=== PATIENT | male | born 1960 | race Caucasian/White ===

== ENCOUNTER 2017-06-19 12:37 | Emergency (ER) | payer MEDICAID, OTHER ==
[~2017-06-19] VITALS: Ht 177.8 cm; Wt 107.5 kg
[~2017-06-19 12:37] MED LIST: ACET325T26 PO; FENO48TA16 PO; HYDR-3240 PO; LANS15CA5 PO; METO10TA82 PO; ONDA4TAB7 PO; PANT40TA3 PO; SERT100T PO
[2017-06-19] MEDS ORDERED: HYDROmorphone 1 MG/ML, 1ML ONE ×3 (14:54→17:08)
[2017-06-19] MEDS ORDERED: ONDANSETRON 2MG/ML, 2ML ONE (14:54)
[2017-06-19] MEDS ORDERED: FAMOTIDINE 20 MG/2 ML ONE (14:55)
[2017-06-19] MEDS: HYDROmorphone 1 MG/ML, 1ML IVPush PRN ×2 (14:56→16:23)
[2017-06-19] MEDS ORDERED: ONDANSETRON 2MG/ML, 2ML IVPush ONE ×2 (15:00→17:30)
[2017-06-19] MEDS ORDERED: FAMOTIDINE 20 MG/2 ML IVP ONE (15:00)
[2017-06-19] MEDS ORDERED: SODIUM CHLORIDE FLUSH 10ML SYR IVF ONE (15:00)
[2017-06-19] MEDS ORDERED: SODIUM CHLORIDE 0.9% 1,000ML IVBOLUS ONE (15:00)
[2017-06-19 15:06] LABS: HEMATOCRIT 48.3 % (39.2-51.8); HEMOGLOBIN 16.8 g/dL (13.7-18.0); WHITE BLOOD COUNT 9.5 x10^3/uL (3.4-10)
[2017-06-19 15:18] LABS: BLOOD UREA NITROGEN 13 mg/dL (7-18)
[2017-06-19 15:24] LABS: ASPARTATE AMINO TRANSFERASE 67 U/L (15-37)
[2017-06-19] MEDS ORDERED: OMNIPAQUE 350 MG/ML, 100ML BOTTLE ONE (16:17)
[2017-06-19] MEDS ORDERED: HYDROmorphone 2 MG/ML, 1ML IVPush PRN (17:30)
== END 2017-06-19 18:38 | disposition home or self-care (01) ==
LOC: ED 14:54
DX: R10.84 Generalized abdominal pain (principal); R11.10 Vomiting, unspecified; E78.5 Hyperlipidemia, unspecified; K21.9 Gastro-esophageal reflux disease without esophagitis; F17.200 Nicotine dependence, unspecified, uncomplicated; Z90.49 Acquired absence of other specified parts of digestive tract
CPT/HCPCS: 36415; 74177; 80053; 81003; 83690; 85025; 96361; 96374; 96375; 96376; 99285; J1170; J2405; J7030; Q9967; S0028

== ENCOUNTER 2017-07-31 12:00 | Emergency (ER) | payer MEDICAID, OTHER ==
[~2017-07-31] VITALS: Ht 177.8 cm; Wt 107.5 kg
[2017-07-31] MEDS ORDERED: KETOROLAC 30 MG/1 ML ONE (12:54)
[2017-07-31] MEDS ORDERED: ALBUTEROL/IPRATROPIUM 2.5MG/0.5MG, 3 ML NPPB ONE (13:00)
[2017-07-31] MEDS ORDERED: KETOROLAC 30 MG/1 ML IM ONE (13:00)
[2017-07-31 14:20] VITALS: BP 154/87
== END 2017-07-31 14:22 | disposition home or self-care (01) ==
LOC: ED 14:13
DX: J20.9 Acute bronchitis, unspecified (principal); K21.9 Gastro-esophageal reflux disease without esophagitis; E78.5 Hyperlipidemia, unspecified; F32.9 Major depressive disorder, single episode, unspecified
CPT/HCPCS: 71020; 96372; 99284; J1885

== ENCOUNTER 2017-09-04 18:31 | Emergency (ER) | payer MEDICAID ==
[~2017-09-04] VITALS: Ht 177.8 cm; Wt 108.0 kg
[2017-09-04] MEDS ORDERED: SERT100T5 PO (18:41)
[2017-09-04] MEDS ORDERED: PANTOPRAZOLE 20MG TABLET ONE ×2 (19:14→19:36)
[2017-09-04] MEDS ORDERED: ONDANSETRON ODT 4 MG ONE ×2 (19:14→19:37)
[2017-09-04] MEDS ORDERED: MAALOX/HYOSCYAMINE/LIDOCAINE 45 ML BTL ONE ×2 (19:14→19:37)
[2017-09-04] MEDS ORDERED: ONDANSETRON ODT 4 MG PO ONE (19:30)
[2017-09-04] MEDS ORDERED: PANTOPRAZOLE 20MG TABLET PO ONE (19:30)
[2017-09-04] MEDS ORDERED: MAALOX/HYOSCYAMINE/LIDOCAINE 45 ML BTL PO ONE (19:30)
[2017-09-04 20:17] VITALS: BP 124/77
== END 2017-09-04 20:34 | disposition home or self-care (01) ==
LOC: ED 19:33
DX: K21.9 Gastro-esophageal reflux disease without esophagitis (principal); E78.5 Hyperlipidemia, unspecified; G89.29 Other chronic pain
CPT/HCPCS: 93005; 99284; Q0162

== ENCOUNTER 2017-10-05 10:49 | Emergency (ER) | payer MEDICAID ==
[~2017-10-05] VITALS: Ht 177.8 cm; Wt 107.7 kg
[~2017-10-05 10:49] MED LIST changes: +SERT100T5 PO
[2017-10-05] MEDS ORDERED: ONDANSETRON 2MG/ML, 2ML ONE (11:24)
[2017-10-05] MEDS ORDERED: MORPHINE SULFATE 4 MG/ML, 1ML ONE ×3 (11:24→12:46)
[2017-10-05] MEDS ORDERED: MAALOX/HYOSCYAMINE/LIDOCAINE 45 ML BTL ONE (11:24)
[2017-10-05] MEDS ORDERED: SODIUM CHLORIDE FLUSH 10ML SYR IVF ONE (11:30)
[2017-10-05] MEDS ORDERED: ONDANSETRON 2MG/ML, 2ML IVPush ONE (11:30)
[2017-10-05] MEDS ORDERED: SODIUM CHLORIDE 0.9% 1,000ML IVBOLUS ONE (11:30)
[2017-10-05] MEDS ORDERED: MAALOX/HYOSCYAMINE/LIDOCAINE 45 ML BTL PO ONE (11:30)
[2017-10-05] MEDS: MORPHINE SULFATE 4 MG/ML, 1ML IVPush PRN ×2 (11:34→12:13)
[2017-10-05 11:50] LABS: HEMATOCRIT 49.3 % (39.2-51.8); WHITE BLOOD COUNT 8.8 x10^3/uL (3.4-10)
[2017-10-05 12:03] LABS: ASPARTATE AMINO TRANSFERASE 42 U/L (15-37); BLOOD UREA NITROGEN 13 mg/dL (7-18)
[2017-10-05] MEDS ORDERED: MORPHINE SULFATE 4 MG/ML, 1ML IVPush PRN (13:00)
[2017-10-05 13:12] VITALS: BP 136/89
== END 2017-10-05 13:17 | disposition home or self-care (01) ==
LOC: ED 13:00
DX: R10.13 Epigastric pain (principal); K21.9 Gastro-esophageal reflux disease without esophagitis; E78.5 Hyperlipidemia, unspecified; Z90.49 Acquired absence of other specified parts of digestive tract
CPT/HCPCS: 36415; 74022; 80053; 83690; 85025; 96374; 96375; 96376; 99285; J2405; J7030

== ENCOUNTER 2017-11-05 01:07 | Emergency (ER) | payer MEDICAID ==
[~2017-11-05] VITALS: Ht 177.8 cm; Wt 104.4 kg
[2017-11-05 02:07] LABS: BASOPHILS # (AUTO) 0.04 x10^3/uL (0-0.1); BASOPHILS % (AUTO) 0 % (0-1); EOSINOPHILS # (AUTO) 0.41 x10^3/uL (0-0.4); EOSINOPHILS % (AUTO) 5 % (1-7); LYMPHOCYTES # (AUTO) 2.77 x10^3/uL (1-3.4); LYMPHOCYTES % (AUTO) 30 % (22-44); MD NO; MEAN CORPUSCULAR HEMOGLOBIN 30.5 pg (27.5-34.5); MEAN CORPUSCULAR VOLUME 89.8 fL (81-97); MEAN PLATELET VOLUME 8.3 fL (7.4-10.4); MONOCYTES # (AUTO) 0.77 x10^3/uL (0.2-0.8); MONOCYTES % (AUTO) 8 % (2-9); NEUTROPHILS # (AUTO) 5.16 x10^3/uL (1.8-6.8); NEUTROPHILS % (AUTO) 56 % (42-75); PLATELET COUNT 172 x10^3/uL (130-400); RED BLOOD COUNT 5.51 x10^6/uL (4.38-5.82); RED CELL DISTRIBUTION WIDTH 13.5 % (9.4-14.8)
[2017-11-05 02:16] LABS: ALANINE AMINOTRANSFERASE 85 U/L (12-78); ALBUMIN 3.8 g/dL (3.4-5.0); ANION GAP 10 mmol/L (5-15); CALCIUM 8.5 mg/dL (8.5-10.1); CHLORIDE 110 mmol/L (98-107); CREATININE 0.87 mg/dL (0.7-1.3)
[2017-11-05 02:18] LABS: ALKALINE PHOSPHATASE 89 U/L (45-117); BILIRUBIN,TOTAL 0.7 mg/dL (0.2-1.0)
[2017-11-05 02:28] VITALS: BP 123/80
== END 2017-11-05 03:12 | disposition home or self-care (01) ==
LOC: ED 01:23
DX: R06.00 Dyspnea, unspecified (principal); F17.210 Nicotine dependence, cigarettes, uncomplicated; K21.9 Gastro-esophageal reflux disease without esophagitis; Z90.49 Acquired absence of other specified parts of digestive tract
CPT/HCPCS: 36415; 71046; 80053; 83690; 85025; 93005; 99285

== ENCOUNTER 2018-02-27 17:05 | Emergency (ER) | payer MEDICAID ==
[~2018-02-27] VITALS: Ht 177.8 cm; Wt 106.8 kg
[2018-02-27] MEDS ORDERED: ASPIRIN 81 MG TABLET CHEW PO ONE (17:30)
[2018-02-27] MEDS ORDERED: SODIUM CHLORIDE FLUSH 10ML SYR IVF ONE (17:30)
[2018-02-27 17:39] LABS: BASOPHILS % (AUTO) 0 % (0-1); EOSINOPHILS % (AUTO) 5 % (1-7); LYMPHOCYTES % (AUTO) 25 % (22-44); MEAN CORPUSCULAR HEMOGLOBIN 30.5 pg (27.5-34.5); MEAN CORPUSCULAR HGB CONC 34.1 g/dL (33.2-36.2); MEAN CORPUSCULAR VOLUME 89.5 fL (81-97); MEAN PLATELET VOLUME 9.1 fL (7.4-10.4); MONOCYTES % (AUTO) 7 % (2-9); NEUTROPHILS # (AUTO) 4.89 x10^3/uL (1.8-6.8); NEUTROPHILS % (AUTO) 63 % (42-75); PLATELET COUNT 136 x10^3/uL (130-400); RED BLOOD COUNT 5.88 x10^6/uL (4.38-5.82); RED CELL DISTRIBUTION WIDTH 13.7 % (9.4-14.8)
[2018-02-27 17:40] LABS: BASOPHILS # (AUTO) 0.02 x10^3/uL (0-0.1); EOSINOPHILS # (AUTO) 0.35 x10^3/uL (0-0.4); LYMPHOCYTES # (AUTO) 1.92 x10^3/uL (1-3.4); MD NO; MONOCYTES # (AUTO) 0.54 x10^3/uL (0.2-0.8)
[2018-02-27 17:51] LABS: ALBUMIN 3.8 g/dL (3.4-5.0); ANION GAP 7 mmol/L (5-15); CALCIUM 8.7 mg/dL (8.5-10.1); CHLORIDE 109 mmol/L (98-107)
[2018-02-27 17:56] LABS: ALANINE AMINOTRANSFERASE 63 U/L (12-78); ALKALINE PHOSPHATASE 95 U/L (45-117); BILIRUBIN,TOTAL 1.1 mg/dL (0.2-1.0); CREATININE 0.98 mg/dL (0.7-1.3); TOTAL PROTEIN 7.4 g/dL (6.4-8.2); TROPONIN I < 0.015 ng/mL (0.000-0.045)
[2018-02-27] MEDS ORDERED: ALUMINUM/MAG/SIMETHICONE 30 ML UDC ONE (18:58)
[2018-02-27] MEDS ORDERED: ACETAMINOPHEN 500 MG TABLET ONE (18:58)
[2018-02-27] MEDS ORDERED: ALUMINUM/MAG/SIMETHICONE 30 ML UDC PO PRN (19:00)
[2018-02-27] MEDS ORDERED: ACETAMINOPHEN 500 MG TABLET PO ONE (19:00)
[2018-02-27 19:41] VITALS: BP 106/61
== END 2018-02-27 20:15 | disposition home or self-care (01) ==
LOC: ED 20:09
DX: R07.2 Precordial pain (principal); F17.200 Nicotine dependence, unspecified, uncomplicated; K21.9 Gastro-esophageal reflux disease without esophagitis; G89.29 Other chronic pain; R10.9 Unspecified abdominal pain; F32.9 Major depressive disorder, single episode, unspecified
CPT/HCPCS: 36415; 71045; 80053; 83690; 84484; 85025; 85379; 93005; 99406

== ENCOUNTER 2018-03-03 03:48 | Emergency (ER) | payer MEDICAID ==
[~2018-03-03] VITALS: Ht 177.8 cm; Wt 104.6 kg
[2018-03-03] MEDS ORDERED: PROMETHAZINE 25 MG/ML, 1ML ONE (04:26)
[2018-03-03] MEDS ORDERED: MORPHINE SULFATE 4 MG/ML, 1ML ONE ×2 (04:26→06:43)
[2018-03-03] MEDS ORDERED: PROMETHAZINE 25 MG/ML, 1ML IM ONE (04:30)
[2018-03-03] MEDS ORDERED: SODIUM CHLORIDE FLUSH 10ML SYR IVF ONE (04:30)
[2018-03-03 04:31] LABS: MICROSCOPIC AUTO
[2018-03-03 04:35] LABS: BASOPHILS # (AUTO) 0.03 x10^3/uL (0-0.1); BASOPHILS % (AUTO) 0 % (0-1); EOSINOPHILS # (AUTO) 0.34 x10^3/uL (0-0.4); EOSINOPHILS % (AUTO) 4 % (1-7); LYMPHOCYTES # (AUTO) 2.05 x10^3/uL (1-3.4); LYMPHOCYTES % (AUTO) 22 % (22-44); MD NO; MEAN CORPUSCULAR HEMOGLOBIN 30.1 pg (27.5-34.5); MEAN CORPUSCULAR HGB CONC 33.8 g/dL (33.2-36.2); MEAN CORPUSCULAR VOLUME 89.1 fL (81-97); MEAN PLATELET VOLUME 9.3 fL (7.4-10.4); MONOCYTES % (AUTO) 8 % (2-9); NEUTROPHILS # (AUTO) 6.27 x10^3/uL (1.8-6.8); NEUTROPHILS % (AUTO) 66 % (42-75); PLATELET COUNT 144 x10^3/uL (130-400); RED BLOOD COUNT 5.88 x10^6/uL (4.38-5.82); RED CELL DISTRIBUTION WIDTH 13.3 % (9.4-14.8)
[2018-03-03] MEDS: MORPHINE SULFATE 4 MG/ML, 1ML IVPush PRN ×2 (04:35→06:44)
[2018-03-03 04:36] LABS: CULTURE INDICATED? NO
[2018-03-03 04:42] LABS: ALANINE AMINOTRANSFERASE 70 U/L (12-78); ALBUMIN 4.1 g/dL (3.4-5.0); ANION GAP 8 mmol/L (5-15); CALCIUM 9.2 mg/dL (8.5-10.1); CHLORIDE 105 mmol/L (98-107); CREATININE 0.96 mg/dL (0.7-1.3)
[2018-03-03 04:46] LABS: ALKALINE PHOSPHATASE 98 U/L (45-117); BILIRUBIN,TOTAL 0.6 mg/dL (0.2-1.0); TOTAL PROTEIN 7.5 g/dL (6.4-8.2); TROPONIN I < 0.015 ng/mL (0.000-0.045)
[2018-03-03] MEDS ORDERED: OMNIPAQUE 350 MG/ML, 100ML BOTTLE ONE (04:46)
[2018-03-03 07:55] VITALS: BP 94/61
== END 2018-03-03 08:32 | disposition home or self-care (01) ==
LOC: ED 05:25
DX: R10.13 Epigastric pain (principal); E78.5 Hyperlipidemia, unspecified; F17.200 Nicotine dependence, unspecified, uncomplicated; K21.9 Gastro-esophageal reflux disease without esophagitis; Z90.49 Acquired absence of other specified parts of digestive tract; Z79.899 Other long term (current) drug therapy
CPT/HCPCS: 36415; 71045; 74177; 80053; 80307; 81001; 83690; 84484; 85025; 86677; 93005; 96372; 96374; 96376; 99285; J2550; Q9967

== ENCOUNTER 2018-04-01 14:24 | Emergency (ER) | payer MEDICAID ==
[~2018-04-01] VITALS: Ht 177.8 cm; Wt 100.0 kg
[2018-04-01] MEDS ORDERED: SODIUM CHLORIDE FLUSH 10ML SYR IVF ONE (15:00)
[2018-04-01 15:08] LABS: BASOPHILS # (AUTO) 0.02 x10^3/uL (0-0.1); BASOPHILS % (AUTO) 0 % (0-1); EOSINOPHILS # (AUTO) 0.33 x10^3/uL (0-0.4); EOSINOPHILS % (AUTO) 6 % (1-7); LYMPHOCYTES # (AUTO) 1.51 x10^3/uL (1-3.4); LYMPHOCYTES % (AUTO) 26 % (22-44); MD NO; MEAN CORPUSCULAR HEMOGLOBIN 30.7 pg (27.5-34.5); MEAN CORPUSCULAR HGB CONC 34.4 g/dL (33.2-36.2); MEAN CORPUSCULAR VOLUME 89.4 fL (81-97); MEAN PLATELET VOLUME 9.9 fL (7.4-10.4); MONOCYTES # (AUTO) 0.54 x10^3/uL (0.2-0.8); MONOCYTES % (AUTO) 9 % (2-9); NEUTROPHILS # (AUTO) 3.42 x10^3/uL (1.8-6.8); NEUTROPHILS % (AUTO) 59 % (42-75); PLATELET COUNT 137 x10^3/uL (130-400); RED BLOOD COUNT 5.73 x10^6/uL (4.38-5.82); RED CELL DISTRIBUTION WIDTH 13.7 % (9.4-14.8)
[2018-04-01 15:16] LABS: ALANINE AMINOTRANSFERASE 91 U/L (12-78); ANION GAP 7 mmol/L (5-15); CALCIUM 8.9 mg/dL (8.5-10.1); CHLORIDE 110 mmol/L (98-107); CREATININE 1.29 mg/dL (0.7-1.3)
[2018-04-01] MEDS ORDERED: MORPHINE SULFATE 4 MG/ML, 1ML ONE (15:18)
[2018-04-01] MEDS ORDERED: MAALOX/HYOSCYAMINE/LIDOCAINE 45 ML BTL ONE (15:18)
[2018-04-01 15:19] LABS: ALKALINE PHOSPHATASE 111 U/L (45-117); TOTAL PROTEIN 7.2 g/dL (6.4-8.2); TROPONIN I < 0.015 ng/mL (0.000-0.045)
[2018-04-01] MEDS ORDERED: MORPHINE SULFATE 4 MG/ML, 1ML IVPush PRN (15:30)
[2018-04-01] MEDS ORDERED: MAALOX/HYOSCYAMINE/LIDOCAINE 45 ML BTL PO ONE (15:30)
[2018-04-01] MEDS ORDERED: LORazepam 1MG TABLET PO ONE (16:30)
[2018-04-01] MEDS ORDERED: LORazepam 1MG TABLET ONE (16:31)
[2018-04-01 16:35] VITALS: BP 114/72
== END 2018-04-01 16:53 | disposition home or self-care (01) ==
LOC: ED 15:12
DX: G89.29 Other chronic pain (principal); R10.13 Epigastric pain; F41.1 Generalized anxiety disorder; K21.9 Gastro-esophageal reflux disease without esophagitis; Z90.49 Acquired absence of other specified parts of digestive tract; E78.5 Hyperlipidemia, unspecified
CPT/HCPCS: 36415; 74022; 80053; 83690; 84484; 85025; 93005; 96374

== ENCOUNTER 2020-02-01 02:01 | Emergency (ER) | payer MEDICAID ==
[~2020-02-01] VITALS: Ht 177.8 cm; Wt 71.6 kg
[~2020-02-01 02:01] MED LIST changes: +SERT100T32 PO; -SERT100T5 PO
[2020-02-01] MEDS ORDERED: ONDANSETRON 2MG/ML, 2ML ONE ×2 (02:24→06:32)
[2020-02-01] MEDS ORDERED: MORPHINE SULFATE 4 MG/ML, 1ML ONE (02:25)
[2020-02-01] MEDS ORDERED: MORPHINE SULFATE 4 MG/ML, 1ML IVPush ONE (02:30)
[2020-02-01] MEDS ORDERED: ONDANSETRON 2MG/ML, 2ML IVPush ONE ×2 (02:30→07:00)
[2020-02-01 02:50] LABS: BASOPHILS # (AUTO) 0.02 x10^3/uL (0-0.1); BASOPHILS % (AUTO) 0 % (0-1); EOSINOPHILS # (AUTO) 0.33 x10^3/uL (0-0.4); EOSINOPHILS % (AUTO) 7 % (1-7); LYMPHOCYTES % (AUTO) 33 % (22-44); MD NO; MEAN CORPUSCULAR HEMOGLOBIN 30.1 pg (27.5-34.5); MEAN CORPUSCULAR VOLUME 88.6 fL (81-97); MEAN PLATELET VOLUME 7.7 fL (7.4-10.4); MONOCYTES # (AUTO) 0.47 x10^3/uL (0.2-0.8); MONOCYTES % (AUTO) 9 % (2-9); NEUTROPHILS # (AUTO) 2.61 x10^3/uL (1.8-6.8); NEUTROPHILS % (AUTO) 51 % (42-75); PLATELET COUNT 141 x10^3/uL (130-400); RED BLOOD COUNT 5.57 x10^6/uL (4.38-5.82); RED CELL DISTRIBUTION WIDTH 13.2 % (9.4-14.8)
[2020-02-01 03:02] LABS: ALANINE AMINOTRANSFERASE 22 U/L (12-78); ALBUMIN 4.4 g/dL (3.4-5.0); ANION GAP 13 mmol/L (5-15); CALCIUM 9.5 mg/dL (8.5-10.1); CHLORIDE 103 mmol/L (98-107); CREATININE 1.06 mg/dL (0.7-1.3)
[2020-02-01 03:04] LABS: ALKALINE PHOSPHATASE 90 U/L (45-117); BILIRUBIN,TOTAL 1.4 mg/dL (0.2-1.0); TOTAL PROTEIN 7.8 g/dL (6.4-8.2)
--- NOTE | 2020-02-01 03:06 | NUR ---
ct pending lab/creatine.
[2020-02-01] MEDS ORDERED: OMNIPAQUE 350 MG/ML, 100ML BOTTLE ONE (03:29)
[2020-02-01 03:34] LABS: MICROSCOPIC NOT IND
[2020-02-01 03:36] LABS: CULTURE INDICATED? NO
[2020-02-01] MEDS ORDERED: PINK LADY ENEMA 490 ML BOTTLE PR ONE (05:00)
[2020-02-01] MEDS ORDERED: POLYETHYLENE GLYCOL 17 GM PACKET PO ONE (05:00)
[2020-02-01] MEDS ORDERED: POLYETHYLENE GLYCOL 17 GM PACKET ONE (05:05)
[2020-02-01 06:41] VITALS: BP 98/66
--- NOTE | 2020-02-01 07:44 | NUR ---
Pt D/C'd per orders. Has own ride.
== END 2020-02-01 07:46 | disposition home or self-care (01) ==
LOC: ED 03:59
DX: K59.00 Constipation, unspecified (principal); R10.31 Right lower quadrant pain; R10.32 Left lower quadrant pain; K21.9 Gastro-esophageal reflux disease without esophagitis; E78.5 Hyperlipidemia, unspecified; Z90.49 Acquired absence of other specified parts of digestive tract; Z87.891 Personal history of nicotine dependence
CPT/HCPCS: 36415; 74177; 80053; 81003; 85025; 96374; 96375; 96376; 99285; J2270; J2405; Q9967

== ENCOUNTER → 2020-05-02 | Outpatient (CLI) | payer MEDICAID | END | disposition home or self-care (01) | LOC: RAD 08:01 | PROVIDERS: ATTEND Surgery | DX: R10.84 Generalized abdominal pain (principal) | CPT/HCPCS: 93975 ==

== ENCOUNTER 2020-05-09 08:43 | Outpatient (CLI) | payer MEDICAID | END 2020-05-09 23:59 | disposition home or self-care (01) | LOC: RAD 08:43 | PROVIDERS: ATTEND Surgery | DX: K21.9 Gastro-esophageal reflux disease without esophagitis (principal) | CPT/HCPCS: 74240 ==

== ENCOUNTER → 2020-05-17 | Outpatient (CLI) | payer MEDICAID | END | disposition home or self-care (01) | LOC: RAD 10:32 | PROVIDERS: ATTEND Surgery | DX: R10.84 Generalized abdominal pain (principal) | CPT/HCPCS: 78264; A9541 ==

== ENCOUNTER 2020-10-26 07:55 | Emergency (ER) | payer MEDICAID ==
[~2020-10-26] VITALS: Ht 177.8 cm; Wt 70.6 kg
--- NOTE | 2020-10-26 08:04 | NUR ---
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
[2020-10-26] MEDS ORDERED: ONDANSETRON ODT 4 MG PO ONE (08:30)
--- NOTE | 2020-10-26 08:33 | NUR ---
PT PLACED ON ALL ROOM MONITORING. VSS/UPDATED IN COMPUTER. PT STATES CHRONIC CONDITION OF N/V/ABD PAIN FOR "YEARS". HAS FELT MORE SOB FOR "COUPLE WEEKS". PT STATES PAIN ORIGINATES IN UPPER ABDOMEN AND RADIATES TO BOTH SIDES CHEST INTERMITTENTLY. CALL LIGHT WITHIN REACH.
--- NOTE | 2020-10-26 08:58 | NUR ---
REPORT TO KEERTHI PARDO, TRANSFER OF CARE AT THIS TIME.
[2020-10-26] MEDS ORDERED: ONDANSETRON ODT 4 MG ONE (08:59)
[2020-10-26 09:11] LABS: ALANINE AMINOTRANSFERASE 29 U/L (12-78); ALBUMIN 3.7 g/dL (3.4-5.0); ANION GAP 6 mmol/L (5-15); CALCIUM 8.9 mg/dL (8.5-10.1); CHLORIDE 108 mmol/L (98-107); CREATININE 0.83 mg/dL (0.7-1.3)
[2020-10-26 09:15] LABS: ALKALINE PHOSPHATASE 103 U/L (45-117); TOTAL PROTEIN 6.5 g/dL (6.4-8.2); TROPONIN I < 0.015 ng/mL (0.000-0.045)
[2020-10-26 09:22] LABS: BASOPHILS % (AUTO) 0 % (0-1); EOSINOPHILS % (AUTO) 11 % (1-7); LYMPHOCYTES % (AUTO) 32 % (22-44); MD NO; MEAN CORPUSCULAR HEMOGLOBIN 29.9 pg (27.5-34.5); MEAN CORPUSCULAR HGB CONC 34.6 g/dL (33.2-36.2); MEAN PLATELET VOLUME 8.7 fL (7.4-10.4); MONOCYTES % (AUTO) 9 % (2-9); NEUTROPHILS % (AUTO) 49 % (42-75); PLATELET COUNT 114 x10^3/uL (130-400); RED BLOOD COUNT 5.21 x10^6/uL (4.38-5.82); RED CELL DISTRIBUTION WIDTH 13.8 % (9.4-14.8)
--- NOTE | 2020-10-26 09:24 | NUR ---
RECEIVED REPORT FROM EDVIN CHAVEZ. PT RESTING ON ZA. NADN. DUCKWORTH.
--- NOTE | 2020-10-26 09:25 | NUR ---
PT CHART REVIEWED AND PLACED FOR RECHECK.
--- NOTE | 2020-10-26 09:53 | NUR ---
ERP DR. MADSEN AT BEDSIDE FOR RE-EVAL.
[2020-10-26] MEDS ORDERED: MAALOX/HYOSCYAMINE/LIDOCAINE 45 ML BTL ONE (09:58)
[2020-10-26] MEDS ORDERED: DICYCLOMINE 10 MG/ML, 2ML ONE (09:58)
[2020-10-26] MEDS ORDERED: DICYCLOMINE 10 MG/ML, 2ML IM ONE (10:00)
[2020-10-26] MEDS ORDERED: MAALOX/HYOSCYAMINE/LIDOCAINE 45 ML BTL PO ONE (10:00)
--- NOTE | 2020-10-26 10:12 | NUR ---
PT REFUSED GI COCKTAIL. ERP DR. MADSEN NOTIFIED. PT AWARE OF NEED FOR PO CHALLENGE. PT PROVIDED W/ ICE WATER.
[2020-10-26 10:34] VITALS: BP 116/77
--- NOTE | 2020-10-26 10:34 | NUR ---
PT RESTING ON GURNEY. NADN. DUCKWORTH.
--- NOTE | 2020-10-26 10:46 | NUR ---
PT TOLERATED PO FLUIDS AND STATES PAIN IMPROVED AFTER BENTYL ADMINISTRATION. PT PLACED FOR RECHECK.
== END 2020-10-26 10:57 | disposition home or self-care (01) ==
LOC: ED 09:02
DX: G89.29 Other chronic pain (principal); R10.84 Generalized abdominal pain; R07.89 Other chest pain; R06.00 Dyspnea, unspecified; R11.2 Nausea with vomiting, unspecified; I10 Essential (primary) hypertension; R10.9 Unspecified abdominal pain
CPT/HCPCS: 36415; 71045; 80053; 83690; 83880; 84484; 85025; 85379; 93005; 96372; 99285; J0500; Q0162

== ENCOUNTER 2021-07-10 04:20 | Emergency (ER) | payer MEDICAID ==
[~2021-07-10] VITALS: Ht 177.8 cm; Wt 69.0 kg
[~2021-07-10 04:20] MED LIST changes: +HYDR-2214 PO; -HYDR-3240 PO
[2021-07-10] MEDS ORDERED: ASPIRIN 81 MG TABLET CHEW PO ONE (05:00)
[2021-07-10] MEDS ORDERED: SODIUM CHLORIDE FLUSH 10ML SYR IVF ONE (05:00)
[2021-07-10] MEDS ORDERED: ASPIRIN 81 MG TABLET CHEW ONE (05:13)
[2021-07-10 05:46] LABS: BASOPHILS % (AUTO) 0 % (0-1); EOSINOPHILS % (AUTO) 6 % (1-7); LYMPHOCYTES % (AUTO) 29 % (22-44); MEAN CORPUSCULAR HEMOGLOBIN 31.6 pg (27.5-34.5); MEAN PLATELET VOLUME 8.8 fL (7.4-10.4); MONOCYTES % (AUTO) 9 % (2-9); NEUTROPHILS % (AUTO) 56 % (42-75); PLATELET COUNT 133 x10^3/uL (130-400); RED BLOOD COUNT 5.15 x10^6/uL (4.38-5.82); RED CELL DISTRIBUTION WIDTH 13.3 % (9.4-14.8)
[2021-07-10 05:59] LABS: ALANINE AMINOTRANSFERASE 31 U/L (12-78); ALBUMIN 3.8 g/dL (3.4-5.0); ANION GAP 5 mmol/L (5-15); CALCIUM 9.1 mg/dL (8.5-10.1); CHLORIDE 108 mmol/L (98-107); CREATININE 0.74 mg/dL (0.7-1.3)
[2021-07-10 06:03] LABS: ALKALINE PHOSPHATASE 90 U/L (45-117); BILIRUBIN,TOTAL 1.2 mg/dL (0.2-1.0); TOTAL PROTEIN 7.1 g/dL (6.4-8.2); TROPONIN I < 0.015 ng/mL (0.000-0.045)
[2021-07-10 06:29] VITALS: BP 121/78
== END 2021-07-10 06:47 | disposition home or self-care (01) ==
LOC: ED 04:50
DX: R07.89 Other chest pain (principal); R11.2 Nausea with vomiting, unspecified; I10 Essential (primary) hypertension; E78.5 Hyperlipidemia, unspecified; K21.9 Gastro-esophageal reflux disease without esophagitis; Z90.49 Acquired absence of other specified parts of digestive tract
CPT/HCPCS: 36415; 71045; 80053; 84484; 85025; 93005; 99285